=== PATIENT | male | born 1945 | race Caucasian/White ===

== ENCOUNTER 2021-10-14 14:44 | Inpatient (IN) | payer OTHER ==
[~2021-10-14] VITALS: Ht 175.3 cm; Wt 101.0 kg
[2021-10-14] MEDS ORDERED: ALOGLIPTIN25 M1 PO (15:06)
[2021-10-14] MEDS ORDERED: THERA-D2000 UNIT PO (15:07)
[2021-10-14] MEDS ORDERED: BETASEPT118 M1 MT (15:07)
[2021-10-14] MEDS ORDERED: LISI5 PO (15:07)
[2021-10-14] MEDS ORDERED: METF500 PO (15:08)
[2021-10-14] MEDS ORDERED: CARB25 PO (15:09)
[2021-10-14] MEDS ORDERED: CARBLEV25 PO (15:10)
--- NOTE | 2021-10-14 18:41 | NUR ---
Patient admitted to Medical at 1800, handoff report recieved, pt AOx4, great historian, at bedside. Pt had intital labs done at [facility] this afternoon, no labs drawn in ED. Pt admitted for RUQ pain, lap silver planned for tomorrow. Ice chips ok, NPO at midnight. Levaquinn infusing now. Pt denies N/V, reports mild ABD pain. SCDS and Tele placed. Vitals stable.
[2021-10-15 04:45] LABS: Hematocrit 36.9 % (37.0-53.0); Hemoglobin 12.8 g/dL (13.5-17.5); Mean Corpuscular HGB 32.9 pg (26.0-34.0); Mean Corpuscular HGB Conc 34.7 g/dL (31.5-36.5); Mean Corpuscular Volume 95 fL (80-100); Mean Platelet Volume 10.8 fL (9.1-12.4); Platelet Count 173 K/mm3 (150-400); RDW Coefficient Variation 11.9 % (11.7-14.2); RDW Standard Deviation 41.1 fL (35.1-46.3); Red Blood Cell Count 3.89 M/mm3 (4.30-5.90); White Blood Cell Count 7.48 K/mm3 (4.00-11.30)
--- NOTE | 2021-10-15 04:51 | NUR ---
SUMMARY: PT A/OX4, INDEPENDENT IN ROOM AND CALLS APPROPRIATELY TO SPECIFY NEEDS. HE'S NPO FOR LAP MATTHEW TODAY W/IVF INFUSING. HE CONT'S TO REPORT DISTENDED AND TENDER ABDO. FENTANYL WAS MOSTLY INEFFECTIVE AT RELIEVING RUQ PAIN SO DILAUDID WAS RX'D AND PROVIDED PRN FOR MUCH BETTER PAIN CONTROL. ZOFRAN GIVEN FOR X1 C/O NAUSEA W/O EMESIS FOR GOOD EFFECT. HE'S SLEPT T/O NOCTE AND USED URINAL AT EOB. PT IS NSR AT 67 BPM PER TELEMETRY. NO ACUTE CHANGES, VSS/AFEBRILE. WCTM AND REPORT TO DAY RN.
[2021-10-15 05:04] LABS: Anion Gap 7 mmol/L (6-16); Blood Urea Nitrogen 14 mg/dL (8-24); Bun/Creatinine Ratio 14.8 (12.0-20.0); CO2, Blood 25 mmol/L (21-32); Calcium, Blood 8.6 mg/dL (8.5-10.1); Chloride, Blood 103 mmol/L (98-108); Creatinine, Blood 0.95 mg/dL (0.60-1.20); Glomerular Filtration Rate >60 (60-); Glucose, Blood 178 mg/dL (70-99); Potassium, Blood 4.2 mmol/L (3.5-5.5); Sodium, Blood 135 mmol/L (136-145)
--- NOTE | 2021-10-15 05:41 | NUR ---
Rn summary: Patient is alert and oriented but forgetful. She is very sweet and cooperative. Family is also caring and helpful. Patient has history of trouble with taking meds, needs them crushed and given in pudding. Pt is contient but unable to get up to BSC with out 2-3 max assist. Used bedpan. Urine is clear and odor free. Skin is intact. Oriented to room. Call light use explained and reviewed. Pt given snack. MRI form filled out and faxed. Neuro exam done, able to folow commands, did miss nose with both hands doing the finger to nose. able to assist with turning in bed. Is forgetful. Pupils equal. Will continue to monitor.
[2021-10-15 12:24] LABS: Alanine Aminotransfer (ALT/SGP 126 U/L (12-78); Albumin, Blood 3.2 g/dL (3.4-5.0); Albumin/Globulin Ratio 0.8 (0.8-1.8); Alk Phos 71 U/L (50-136); Anion Gap 7 mmol/L (6-16); Aspartate Aminotrans (AST/SGOT 82 U/L (12-37); Bilirubin, Total 2.5 mg/dL (0.1-1.0); Blood Urea Nitrogen 12 mg/dL (8-24); Bun/Creatinine Ratio 12.5 (12.0-20.0); CO2, Blood 25 mmol/L (21-32); Calcium, Blood 8.9 mg/dL (8.5-10.1); Chloride, Blood 103 mmol/L (98-108); Creatinine, Blood 0.96 mg/dL (0.60-1.20); Glomerular Filtration Rate >60 (60-); Glucose, Blood 162 mg/dL (70-99); Potassium, Blood 4.6 mmol/L (3.5-5.5); Sodium, Blood 135 mmol/L (136-145); Total Protein, Blood 7.2 g/dL (6.4-8.2)
--- NOTE | 2021-10-15 14:03 | NUR ---
PT HERE BY MELISSA RECENTLY WITH FAMILY PRESENT. History, Chart, Medications and Allergies reviewed before start of procedure.Lungs clear T/O to Auscultation. Patient confirms NPO status and agrees with scheduled surgery. Pre-Op teaching done. Pt verbalizes understanding.
--- NOTE | 2021-10-15 18:26 | NUR ---
END OF SHIFT SUMMARY: Pt nausea/painful this am, PRNs alternated Q3-4H to manage discomfort. MD assessed pt at bed, pt left Medical floor at 1330 for surgery. Returned to floor at 1620. Post-op VS initiated. LR infusing, Levaquin ABX ordered post-op. 3x lap sites covered w/ steri-strips CDI, no drainage noted. RUQ DONTA drain in place, moderate bloody drainage observed. SCDs/Tele in place. Advancing diet as tolerated, Pt tolerating oral intake no N/V reported.
--- NOTE | 2021-10-15 22:24 | NUR ---
2030 PT REPORTED SUDDEN SHARP INCREASE IN ABD PAIN. PT ABD NOTED TO HAVE RIGID ABD. PT REPORTS WORSE PAIN SINCE BEING AT [facility]. DR HALL CALLED AND ORDERED CT SCAN. DR DUNNE CALLED AND UPDATED. PT WAS NOTED LATER THAT HE HAS NOT VOID A SIGNIFICANT AMOUNT. PT BLADDER SCANNED AND NOTED 712 ML. PT WAS ABLE TO VOID 300 ML AND NOTED PAIN RELIEF. PT REPORTS HAVING HX OF URINARY RETENTION. WCTM
[2021-10-16 04:43] LABS: BASOPHILS ABSOLUTE AUTO 0.06 K/mm3 (0.00-0.23); BASOPHILS PERCENT AUTO 1 % (0-2); EOSINOPHILS ABSOLUTE AUTO 0.07 K/mm3 (0.00-0.68); EOSINOPHILS PERCENT AUTO 1 % (0-6); Hematocrit 43.8 % (37.0-53.0); IMMATURE GRAN ABSOLUTE AUTO 0.04 K/mm3 (0.00-0.10); IMMATURE GRAN PERCENT AUTO 0 % (0-1); LYMPHOCYTES ABSOLUTE AUTO 1.62 K/mm3 (0.84-5.20); LYMPHOCYTES PERCENT AUTO 14 % (21-46); MONOCYTES ABSOLUTE AUTO 1.14 K/mm3 (0.16-1.47); MONOCYTES PERCENT AUTO 10 % (4-13); Mean Corpuscular HGB 32.5 pg (26.0-34.0); Mean Corpuscular HGB Conc 34.2 g/dL (31.5-36.5); Mean Corpuscular Volume 95 fL (80-100); Mean Platelet Volume 10.7 fL (9.1-12.4); NEUTROPHILS ABSOLUTE AUTO 8.39 K/mm3 (1.96-9.15); NEUTROPHILS PERCENT AUTO 74 % (41-73); Platelet Count 231 K/mm3 (150-400); RDW Coefficient Variation 12.2 % (11.7-14.2); RDW Standard Deviation 42.5 fL (35.1-46.3); Red Blood Cell Count 4.61 M/mm3 (4.30-5.90); White Blood Cell Count 11.32 K/mm3 (4.00-11.30)
--- NOTE | 2021-10-16 05:05 | NUR ---
SUMMARY PT HAD REPORTED INCREASE ABD PAIN. PAIN RESOLVED WITH VOIDING. PT CONTINUES TO HAVE SEROSANGUINEOUS FLUID DRAIN. PT PAIN HAS BEEN MANAGED WELL PER EMAR. PT HAS BEEN ABLE TO SLEEP DURING SHIFT. PT IS AMBULATING TO BSC EASILY. PT CURRENTLY SLEEPING IN NO DISTRESS. CALL LIGHT IN REACH.
[2021-10-16 05:19] LABS: Alanine Aminotransfer (ALT/SGP 36 U/L (12-78); Albumin, Blood 3.2 g/dL (3.4-5.0); Albumin/Globulin Ratio 0.7 (0.8-1.8); Alk Phos 87 U/L (50-136); Anion Gap 9 mmol/L (6-16); Aspartate Aminotrans (AST/SGOT 188 U/L (12-37); Bilirubin, Total 3.9 mg/dL (0.1-1.0); Blood Urea Nitrogen 13 mg/dL (8-24); Bun/Creatinine Ratio 12.5 (12.0-20.0); CO2, Blood 24 mmol/L (21-32); Calcium, Blood 9.2 mg/dL (8.5-10.1); Chloride, Blood 102 mmol/L (98-108); Creatinine, Blood 1.04 mg/dL (0.60-1.20); Globulin, Blood 4.3 g/dL (2.2-4.0); Glomerular Filtration Rate >60 (60-); Glucose, Blood 199 mg/dL (70-99); Potassium, Blood 4.2 mmol/L (3.5-5.5); Sodium, Blood 135 mmol/L (136-145); Total Protein, Blood 7.5 g/dL (6.4-8.2)
--- NOTE | 2021-10-16 17:48 | NUR ---
END OF SHIFT SUMMARY: Pt transitioned to PO pain medications, PRN effective for pain control. Pt OOB for meals, ambulating to the BR. services tech notifed RN that pts HR Tachy during activities. DONTA drain had 30mL of serosainguinous drainage. 3x lap sites, covered steri-strips CDI. Bowel tones hypoactive. Vitals stable this shift.
--- NOTE | 2021-10-17 04:21 | NUR ---
SHIFT SUMMARY A/O X4, IND IN RM. VSS. URESIL DRAINING THICK BROWN DRAINAGE. TOLERATING INTAKE. VOIDING WELL, ACTIVE BOWEL TONES. PAIN TREATED WITH PO PAIN MEDICATION PER EMAR. BENADRYL ORDERED BY MD FOR ITCHING AND PT COMPLAINT OF BEING UNABLE TO SLEEP, APPEARED TO HELP PT. COOPERATIVE AND PLEASANT THROUGHOUT SHIFT. TO BRING IN MEDICATION TO HELP BRING PLATELETS UP THIS AM. WILL CONTINUE TO MONITOR AND REPORT TO ONCOMING RN.
--- NOTE | 2021-10-17 04:36 | NUR ---
SHIFT SUMMARY A/O X4, IND IN RM. VSS. LAP SITES X3 WITH STERI STRIPS C/D/I. DONTA DRAIN TO RUQ DRAINING SS DRAINAGE, 35ML THIS SHIFT. VOIDING WELL. BOWEL TONES ACTIVE. TOLERATING PO INTAKE. TREATED PER EMAR FOR PAIN WITH PO PAIN MEDICATIONS. WILL CONITNUE TO MONITOR AND REPORT TO ONCOMING RN.
[2021-10-17 04:47] LABS: BASOPHILS ABSOLUTE AUTO 0.04 K/mm3 (0.00-0.23); BASOPHILS PERCENT AUTO 0 % (0-2); EOSINOPHILS ABSOLUTE AUTO 0.19 K/mm3 (0.00-0.68); EOSINOPHILS PERCENT AUTO 2 % (0-6); Hemoglobin 12.9 g/dL (13.5-17.5); IMMATURE GRAN ABSOLUTE AUTO 0.07 K/mm3 (0.00-0.10); IMMATURE GRAN PERCENT AUTO 1 % (0-1); LYMPHOCYTES ABSOLUTE AUTO 0.97 K/mm3 (0.84-5.20); LYMPHOCYTES PERCENT AUTO 9 % (21-46); MONOCYTES ABSOLUTE AUTO 0.96 K/mm3 (0.16-1.47); MONOCYTES PERCENT AUTO 9 % (4-13); Mean Corpuscular HGB Conc 34.9 g/dL (31.5-36.5); Mean Corpuscular Volume 95 fL (80-100); Mean Platelet Volume 10.8 fL (9.1-12.4); NEUTROPHILS ABSOLUTE AUTO 8.87 K/mm3 (1.96-9.15); NEUTROPHILS PERCENT AUTO 80 % (41-73); Platelet Count 190 K/mm3 (150-400); RDW Standard Deviation 41.4 fL (35.1-46.3); Red Blood Cell Count 3.91 M/mm3 (4.30-5.90)
[2021-10-17 05:11] LABS: Albumin, Blood 2.5 g/dL (3.4-5.0); Albumin/Globulin Ratio 0.6 (0.8-1.8); Bilirubin, Total 3.5 mg/dL (0.1-1.0); Bun/Creatinine Ratio 12.8 (12.0-20.0); Calcium, Blood 8.7 mg/dL (8.5-10.1); Creatinine, Blood 1.25 mg/dL (0.60-1.20); Potassium, Blood 4.1 mmol/L (3.5-5.5); Total Protein, Blood 6.5 g/dL (6.4-8.2)
[2021-10-17] MEDS ORDERED: OXAYDO5 M6 PO (11:42)
[2021-10-17] MEDS ORDERED: MIRALAX17 GM PO (11:43)
--- NOTE | 2021-10-17 12:52 | NUR ---
DISCHARGE NOTE PT DC TO HOME WITH . PT AxOx4. PLEASANT AND COOPERATIVE WITH CARE THIS SHIFT. PT VITALS REVIEWED. DONTA DRAIN EMPTIED. DC INSTRUCTIONS GIVEN INCLUDING PT EDUCATION, DC MED LIST, AND FOLLOW UP APPOINTMENTS. PT AND VERBALIZE UNDERSTANDING AND DENY ANY FURTHER QUESTIONS AT THIS TIME. PT SAFELY ESCORTED OUT VIA WC WITH ENAMEL BUFFER.
--- NOTE | 2021-10-18 16:02 | NUR ---
10/18/21 1602 Sadaf Reyes VERIFICATIONS: EDIT CHART.
== END 2021-10-17 12:45 | disposition home or self-care (01) | DRG 418 ==
LOC: ER 14:44 → MEDS 16:58 → ER 18:03 → MEDS 10-16 15:56
PROVIDERS: Internal Medicine; Orthopaedic Surgery; Surgery; ADMIT Internal Medicine
PROC: 0FT44ZZ Resection of Gallbladder, Percutaneous Endoscopic Approach (ICD-10-PCS; principal; 2021-10-15 20:45)
DX: K80.00 Calculus of gallbladder with acute cholecystitis without obstruction (principal); N13.39 Other hydronephrosis; I10 Essential (primary) hypertension; E11.9 Type 2 diabetes mellitus without complications; G20 Parkinson's disease; Z28.21 Immunization not carried out because of patient refusal; Z79.84 Long term (current) use of oral hypoglycemic drugs; Z79.899 Other long term (current) drug therapy; Z88.1 Allergy status to other antibiotic agents
CPT/HCPCS: 36415; 74177; 80048; 80053; 82947; 85025; 85027; 88304; 93005; 93010; 96374; 96375; 96376; 99285; A9270; G0378; J1170; J1956; J2405; J2550; J2704; J2710; J3010; J7120; Q9967